=== PATIENT | male | born 1950 | race Two or more races ===

== ENCOUNTER 2016-04-10 10:54 | Emergency (ER) | payer OTHER, MEDICAID ==
[~2016-04-10] VITALS: Ht 172.7 cm; Wt 81.6 kg
[2016-04-10 11:52] LABS: Basophils # (auto) 0 uL; Basophils % (auto) 0.2 % (0.0-2.0); DEFINITIVE VIEW TRANSMISSION; Eosinophils # (auto) 0.1 uL; Eosinophils % (auto) 1.9 % (0.0-7.0); Hematocrit 32.8 % (41.0-53.0); Lymphocytes # (auto) 0.6 uL; Lymphocytes % (auto) 8.8 % (10.0-50.0); Mean Corpuscular Hemoglobin 23.3 pg (28.0-32.0); Mean Corpuscular Hgb Conc. 30.5 g/dL (32.0-36.0); Mean Corpuscular Volume 76.3 fL (80.0-100.0); Mean Platelet Volume 11.4 fL (7.4-10.4); Monocytes # (auto) 0.5 uL; Monocytes % (auto) 7.1 % (0.0-12.0); Neutrophils # (auto) 5.4 uL; Platelet Count (auto) 184 10^3/uL (140-450); Red Cell Distribution Width 18.5 % (11.6-16.0); SUSPECT VIEW TRANSMISSION; White Blood Cell 6.5 10^3/uL (4.4-10.8)
[2016-04-10 12:05] LABS: BUN/Creatinine Ratio 17.8; Calcium 8.7 mg/dL (8.5-10.1); Magnesium 2.2 mg/dL (1.6-2.6); Potassium 4.5 mmol/L (3.5-5.1)
[2016-04-10 12:07] LABS: Bilirubin, Total 0.2 mg/dL (0.2-1.0); Total Protein 7.7 g/dL (6.4-8.2)
[2016-04-10] MEDS ORDERED: ONDANSETRON HCL 4 MG/2 ML VIAL IV ONE (14:30)
[2016-04-10] MEDS ORDERED: SODIUM CHLORIDE 0.9% 1,000 ML IV ONE (14:30)
[2016-04-10 14:39] VITALS: BP 143/65
[2016-04-10 14:50] LABS: INR 1.06 (0.9-1.15); Partial Thromboplastin Time 24.5 sec (22.64-33.71); Prothrombin Time 10.9 sec (9.37-12.3)
[2016-04-10 15:59] LABS: Urine Bilirubin Negative (Negative); Urine Blood Negative /uL (Negative); Urine Color Yellow (Yellow); Urine Ketone Negative (Negative); Urine Mucus FEW (None Seen); Urine Nitrite Negative (Negative); Urine RBC 1 /hpf (0 - 3); Urine Squamous Epithelial Cell FEW /hpf (<5); Urine Urobilinogen Normal (Negative); Urine pH 7.5 (5.0-8.0)
[2016-04-10 16:17] LABS: Urine Glucose 3+ mg/dL (Normal)
== END 2016-04-10 17:23 | disposition home or self-care (01) ==
LOC: ER 11:10
DX: R42 Dizziness and giddiness (principal); D50.9 Iron deficiency anemia, unspecified; R11.2 Nausea with vomiting, unspecified; F17.210 Nicotine dependence, cigarettes, uncomplicated; E11.9 Type 2 diabetes mellitus without complications; I10 Essential (primary) hypertension; R51 Headache
CPT/HCPCS: 36415; 70450; 71020; 80053; 81001; 82962; 83735; 84484; 85025; 85610; 85730; 93005; 94761; 96361; 96374; 99285; J2405; J7030

== ENCOUNTER 2020-01-22 17:50 | Emergency (ER) | payer OTHER, MEDICAID ==
[~2020-01-22] VITALS: Ht 167.6 cm; Wt 72.6 kg
[2020-01-22 19:21] LABS: Basophils # (auto) 0 10 ^3/uL (0-0.2); Eosinophils # (auto) 0.1 10 ^3/uL (0-0.8); Hemoglobin 9.2 g/dL (13.5-17.5); Lymphocytes # (auto) 0.7 10 ^3/uL (0.4-5.4); Lymphocytes % (auto) 18.9 % (10.0-50.0); Monocytes # (auto) 0.4 10 ^3/uL (0-1.3); Neutrophils # (auto) 2.6 10 ^3/uL (1.6-8.6); White Blood Cell 3.8 10^3/uL (4.4-10.8)
[2020-01-22 19:23] LABS: Basophils % (auto) 0.6 % (0.0-2.0); Eosinophils % (auto) 1.8 % (0.0-7.0); Hematocrit 29.5 % (41.0-53.0); Mean Corpuscular Hemoglobin 21.8 pg (28.0-32.0); Mean Corpuscular Hgb Conc. 31.1 g/dL (32.0-36.0); Mean Corpuscular Volume 70.1 fL (80.0-100.0); Monocytes % (auto) 9.5 % (0.0-12.0); Neutrophils % (auto) 69.2 % (37.0-80.0); Nucleated Red Blood Cells % 0.1 %; Platelet Count (auto) 169 10^3/uL (140-450); Red Blood Cells 4.22 10^6/uL (4.5-5.90); Red Cell Distribution Width 18.5 % (11.8-14.3)
[2020-01-22 19:37] LABS: INR 0.99 (0.9-1.15); Partial Thromboplastin Time 24.8 sec (23.0-31.2)
[2020-01-22 19:40] LABS: Albumin 3.7 g/dL (3.4-5.0); Anion Gap 4 (5-15); Blood Urea Nitrogen 15 mg/dL (7-18); Calcium 8.7 mg/dL (8.5-10.1); Carbon Dioxide 27 mmol/L (21-32); Chloride 102 mmol/L (98-107); Glucose 318 mg/dL (74-106); Potassium 4.2 mmol/L (3.5-5.1); Sodium 133 mmol/L (136-145)
[2020-01-22 19:42] LABS: Alanine Aminotransferase 30 U/L (16-61); Aspartate Aminotransferase 17 U/L (15-37); BUN/Creatinine Ratio 13.8; GFR African American 86 mL/min; GFR Non-African American 71 mL/min
[2020-01-22 19:47] LABS: Alkaline Phosphatase 144 U/L (45-117); Bilirubin, Total 0.2 mg/dL (0.2-1.0); Total Protein 7.2 g/dL (6.4-8.2)
[2020-01-22] MEDS ORDERED: ASPirin 81 mg TAB PO ONE (21:30)
[2020-01-22] MEDS ORDERED: MORPHINE SULF INJ 2 MG/ML SYRINGE 1ML IV PRN ×2 (21:45→22:15)
[2020-01-22] MEDS ORDERED: ONDANSETRON HCL 4 MG/2 ML VIAL IV PRN ×2 (21:45→22:15)
[2020-01-22] MEDS ORDERED: cloNIDine HCL 0.1 MG TAB PO PRN ×2 (21:45→22:15)
[2020-01-22] MEDS ORDERED: ACETAMINOPHEN 325 MG TAB PO PRN ×2 (21:45→22:15)
[2020-01-22] MEDS ORDERED: DEXTROSE (50%) 50ML SYRG IV PRN ×2 (21:45→22:15)
[2020-01-22] MEDS ORDERED: TEMAZEPAM 15 MG CAP PO PRN ×2 (21:45→22:15)
[2020-01-22] MEDS ORDERED: NITROGLYCERIN 0.4 MG SL TAB SL PRN ×2 (21:45→22:15)
[2020-01-22] MEDS ORDERED: ATORVASTATIN 20 MG TAB PO SCH (22:00)
[2020-01-22] MEDS ORDERED: ACCU-CHEK COMFORT CURVE STRIP VI SCH (22:00)
[2020-01-22] MEDS ORDERED: InsuLIN REG 1unit/0.01ml Soln (100units/ml) SC SCH (22:00)
[2020-01-22] MEDS ORDERED: FAMOTIDINE 20 MG TAB PO SCH (22:00)
[2020-01-23] VITALS: BP 152/64
[2020-01-23] MEDS ORDERED: InsuLIN REG 1unit/0.01ml Soln (100units/ml) SC SCH (07:00)
[2020-01-23] MEDS ORDERED: ACCU-CHEK COMFORT CURVE STRIP VI SCH (07:00)
[2020-01-23] MEDS ORDERED: ASPirin 81 mg TAB PO SCH ×2 (10:00)
[2020-01-23] MEDS ORDERED: FAMOTIDINE 20 MG TAB PO SCH (10:00)
[2020-01-23] MEDS ORDERED: ENOXAPARIN SOD 40 MG/0.4 ML SYRINGE SC SCH ×2 (10:00)
[2020-01-23] MEDS ORDERED: ATORVASTATIN 20 MG TAB PO SCH (22:00)
== END 2020-01-23 00:01 | disposition home or self-care (01) ==
LOC: ER 17:50 → TELE 17:51 → UNDOADMIN 17:51 → UNDODISIN 01-23 00:59
DX: R07.89 Other chest pain (principal); D61.818 Other pancytopenia; E87.1 Hypo-osmolality and hyponatremia; F17.210 Nicotine dependence, cigarettes, uncomplicated; I10 Essential (primary) hypertension
CPT/HCPCS: 36415; 71046; 80053; 83880; 84484; 85025; 85379; 85610; 85730; G0378